=== PATIENT | female | born 1930 | race Caucasian/White ===

== ENCOUNTER → 2017-06-12 | Outpatient (CLI) | payer MEDICARE, OTHER ==
[2017-06-12 10:48] LABS: ABSOLUTE EOSINOPHILS 0.2 thou/uL (0.0-0.7); ABSOLUTE LYMPHOCYTES 1.6 thou/uL (0.8-5.3); ABSOLUTE MONOCYTES 0.4 thou/uL (0.0-1.2); ABSOLUTE NEUTROPHILS 2.6 thou/uL (1.6-8.1); BASOPHILS 0.9 %; EOSINOPHILS 3.7 %; HEMATOCRIT 45.3 % (37.0-47.0); HEMOGLOBIN 14.9 gm/dL (12.0-15.0); LYMPHOCYTES 32.9 %; MCH 30.2 pg (26.0-34.0); MCHC 32.9 g/dL (28.0-37.0); MCV 91.7 fL (80.0-100.0); MONOCYTES 8.5 %; MPV 9.2 fl. (7.2-11.1); NUCLEATED RBCS 0 /100WBC; PLATELET COUNT* 199 thou/uL (150-400); RBC 4.95 mil/uL (4.20-5.00); RDW-CV 14.5 % (10.5-14.5); WBC 4.9 thou/uL (4.0-11.0)
[2017-06-12 10:57] LABS: ALBUMIN 3.6 g/dL (3.4-5.0); ALKALINE PHOSPHATASE 76 U/L (46-116); ANION GAP 7 mmol/L (7-16); BUN 13 mg/dL (7-18); CHLORIDE 105 mmol/L (98-107); CHOLESTEROL 199 mg/dL (<200); CO2 30 mmol/L (21-32); CREATININE 0.9 mg/dL (0.6-1.3); GLUCOSE 85 mg/dL (70-99); HDL CHOLESTEROL 66 mg/dL (>40); LDL CHOLESTEROL 120 mg/dL (<100); POTASSIUM 4.3 mmol/L (3.5-5.1); SERUM ASSESSMENT Clear; SGOT 23 U/L (15-37); SGPT 21 U/L (30-65); SODIUM 142 mmol/L (136-145); TOTAL BILIRUBIN 0.5 mg/dL (<0.1-1.0); TOTAL PROTEIN 7.2 g/dL (6.4-8.2); TRIGLYCERIDE 69 mg/dL (<150); VLDL 14 mg/dL (<40)
[2017-06-13 02:13] LABS: GLYCOHEMOGLOBIN (HGB A1C) 5.2 % (4.8-5.6)
== END ==
LOC: M.LAB 10:20
PROVIDERS: Nurse Practitioner Family
DX: Z12.31 Encounter for screening mammogram for malignant neoplasm of breast (principal); E03.9 Hypothyroidism, unspecified; M81.0 Age-related osteoporosis without current pathological fracture; R79.89 Other specified abnormal findings of blood chemistry; R73.09 Other abnormal glucose; E55.9 Vitamin D deficiency, unspecified

== ENCOUNTER → 2018-07-22 | Outpatient (CLI) | payer MEDICARE, OTHER | LOC: M.RAD 16:21 | DX: M16.11 Unilateral primary osteoarthritis, right hip (principal); M47.816 Spondylosis without myelopathy or radiculopathy, lumbar region; M25.561 Pain in right knee ==